=== PATIENT | female | born 1940 | race Caucasian/White ===

== ENCOUNTER → 2024-08-10 | Outpatient (CLI) | payer OTHER, SELFPAY ==
--- NOTE | 2024-08-10 13:30 | XR_ITS ---
Examination: CT abdomen without intravenous contrast. Coronal 2-D reconstructions. Sagittal 2-D reconstructions. Date and time of exam:August 10, 2024 at 1341 hours INDICATIONS: Ventral hernia 6 months CTDI: vol (mGy): 12.1 DLP: (mGycm): 411 Technique: Axial images of the abdomen have been obtained, 3 mm slice thickness, without intravenous contrast 2-D sagittal coronal reconstructions Low dose protocols were performed. One or more of the following dose reduction techniques were used; automated exposure control, adjustment of the mA and/or KV according to patient size, use of iterative reconstruction technique. Findings: No focal liver or splenic lesion Tiny gallstones Mild to moderate bilateral renal parenchymal scar formation Minute 5 mm fat-containing umbilical hernia Normal appendix No bowel obstruction IMPRESSION: 5 mm fat-containing umbilical hernia
== END | disposition home or self-care (01) ==
LOC: CCTX 13:14
PROVIDERS: PCP Internal Medicine; Referring Provider Internal Medicine; Visit Provider Internal Medicine
DX: K42.9 Umbilical hernia without obstruction or gangrene (principal)
CPT/HCPCS: 74150

== ENCOUNTER → 2024-08-17 | Outpatient (CLI) | payer OTHER, SELFPAY ==
[2024-08-17 10:38] LABS: Parathyroid Hormone Intact 59.4 pg/ml (18.5-88.0)
[2024-08-17 10:40] LABS: Albumin, Serum 4.8 gm/dL (3.4-4.8); Anion Gap 8 (7-16); BUN/Creatinine Ratio 13 Ratio (12-20); Blood Urea Nitrogen 20 mg/dL (9-23); Carbon Dioxide 27.5 mMol/L (20.0-31.0); Chloride 103 mMol/L (98-107); Creatinine (Component) 1.5 mg/dL (0.6-1.3); Glucose 103 mg/dL (74-106); Osmolality,Calculated 278 (275-295); Phosphorous 2.8 mg/dL (2.4-5.1); Potassium 3.6 mMol/L (3.4-5.1); Sodium 138 mMol/L (136-145); Uric Acid 4.5 mg/dL (3.1-7.8); eGFR 35 See Note
[2024-08-17 11:03] LABS: Vitamin D 25 Hydroxy Total 41.6 ng/mL (7.3-40.2)
[2024-08-17 12:04] LABS: Creatinine MALB Rnd Ur 105 mg/dL (30-125); Microalbumin, Random Urine < 3 mg/L (0-300)
== END | disposition home or self-care (01) ==
LOC: COPL 09:26
PROVIDERS: PCP Internal Medicine; Referring Provider Internal Medicine; Visit Provider Internal Medicine
DX: I12.9 Hypertensive chronic kidney disease with stage 1 through stage 4 chronic kidney disease, or unspecified chronic kidney disease (principal); N18.30 Chronic kidney disease, stage 3 unspecified
CPT/HCPCS: 36415; 80069; 82043; 82306; 82570; 83970; 84550

== ENCOUNTER → 2024-09-11 | Outpatient (CLI) | payer OTHER, SELFPAY ==
--- NOTE | 2024-09-11 10:15 | XR_ITS ---
Examination: MRI abdomen with intravenous contrast. MRI abdomen without intravenous contrast. Date and time of exam: September 03, 2024 1044 hrs. Indications: Diagnosis benign neoplasm kidney and ventral hernia 6 months, Technique: Multiple axial, sagittal and coronal sections of the abdomen obtained. Transverse images, TR 6020, TE 107. T1 weighted transverse images, TR 582, TE 9.5. T2-weighted sagittal images, TR 4000, TE 105. T2-weighted sagittal images, TR 4000, TE 5. Coronal images, TR 4210, TE 107. Axial and coronal images are obtained post 20 cc intravenous injection, gadolinium. Findings: No focal liver lesions Gallbladder wall is not thickened Normal sized common hepatic common bile duct 3 to 4 mm no stones No pancreatic mass or peripancreatic edema Spleen not enlarged Bilateral renal cysts, the largest in the lower pole right kidney 25 mm No ascites Postcontrast images demonstrate no abnormal enhancing liver splenic or renal lesions Impression: Negative for cholecystitis No extrahepatic biliary tract dilatation Negative for pancreatitis Bilateral benign renal cysts
== END | disposition home or self-care (01) ==
LOC: SMRI 09:40
PROVIDERS: PCP Internal Medicine; Referring Provider Internal Medicine; Visit Provider Internal Medicine
DX: N28.1 Cyst of kidney, acquired (principal)
CPT/HCPCS: 74183

== ENCOUNTER → 2024-11-02 | Outpatient (CLI) | payer OTHER, SELFPAY ==
[2024-11-02 13:13] LABS: Collection Type, Urine Clean Catch
[2024-11-02 13:52] LABS: Basophils # (Auto) 0.1 Thou/mm3 (0.0-0.2); Basophils % (Auto) 1 % (0-2.5); Eosinophils # (Auto) 0.2 Thou/mm3 (0.0-0.5); Eosinophils % (Auto) 2 % (0-10); Hematocrit 39.6 % (36.0-46.0); Hemoglobin 12.9 g/dL (12.0-16.0); Immature Granulocytes % (Auto) 0 % (0-0); Immature Granulocytes Auto 0.03 Thou/mm3 (0.00-0.00); Lymphocytes # (Auto) 2.3 Thou/mm3 (1.0-4.8); Lymphocytes % (Auto) 26 % (10-50); Mean Corpuscular HGB Conc 32.6 g/dl (31.0-37.0); Mean Corpuscular Hemoglobin 30.3 pg (25.0-35.0); Mean Corpuscular Volume 93 fL (80-100); Monocytes # (Auto) 0.4 Thou/mm3 (0.0-0.8); Monocytes % (Auto) 4 % (0-12); Neutrophils # (Auto) 5.7 Thou/mm3 (1.8-7.7); Neutrophils % (Auto) 66 % (37-80); Nucleated Red Blood Cell % 0 /100 WBC (0); Platelet Count 348 Thou/mm3 (140-440); RDW Standard Deviation 50.6 fL (36.4-46.3); Red Blood Count 4.26 Miln/mm3 (4.00-5.20); White Blood Count 8.7 Thou/mm3 (3.6-11.0)
[2024-11-02 13:58] LABS: Bilirubin,Urine Negative (Negative); Blood,Urine Negative (Negative); Clarity,Urine Clear (Clear/Hazy); Color,Urine Lt-Yellow (Lt Yel-Yel); Glucose, Urine Negative (Negative); Ketones,Urine Negative (Negative); Leukocyte Esterase,Urine Negative (Negative); Nitrite,Urine Negative (Negative); Protein,Urine Negative (Neg - Trace); RBC,Urine 2 /hpf (0-3); Specific Gravity,Urine 1.016 (1.001-1.035); Squamous Epithelial Cell,Urine 4 /hpf (0-5); Urobilinogen,Urine Negative mg/dL (0.0-1.0); WBC,Urine 1 /hpf (0-5)
[2024-11-02 14:16] LABS: Alanine Aminotransferase 16 U/L (10-49); Albumin, Serum 4.1 gm/dL (3.4-4.8); Albumin/Globulin Ratio 1.6 (1.2-2.2); Alkaline Phosphatase 77 U/L (46-116); Anion Gap 10 (7-16); Aspartate Amino Transferase 20 U/L (0-34); BUN/Creatinine Ratio 18 Ratio (12-20); Bilirubin,Total 0.5 mg/dL (0.3-1.2); Blood Urea Nitrogen 24 mg/dL (9-23); Calcium 9.9 mg/dL (8.3-10.6); Calcium (Corrected) 9.9 mg/dL (8.5-10.1); Cardiac Risk Estimate 3.8 RATIO (3.7-5.6); Chloride 103 mMol/L (98-107); Cholesterol 192 mg/dL (132-200); Creatinine (Component) 1.3 mg/dL (0.6-1.3); Globulin 2.5 gm/dL (2.3-3.5); Glucose 97 mg/dL (74-106); HDL Cholesterol 51 mg/dL (40-60); LDL Cholesterol,Calculated 112 mg/dL (0-130); Osmolality,Calculated 287 (275-295); Phosphorous 3.5 mg/dL (2.4-5.1); Potassium 4.1 mMol/L (3.4-5.1); Sodium 142 mMol/L (136-145); Total Protein 6.6 gm/dL (5.7-8.2); Triglycerides 147 mg/dL (30-150); eGFR 41 See Note
[2024-11-02 14:20] LABS: Iron 63 mcg/dL (50-170)
== END | disposition home or self-care (01) ==
PROVIDERS: PCP Internal Medicine; Referring Provider Internal Medicine; Visit Provider Internal Medicine
DX: I12.9 Hypertensive chronic kidney disease with stage 1 through stage 4 chronic kidney disease, or unspecified chronic kidney disease (principal); N18.30 Chronic kidney disease, stage 3 unspecified; D50.0 Iron deficiency anemia secondary to blood loss (chronic); E78.2 Mixed hyperlipidemia
CPT/HCPCS: 36415; 80053; 80061; 81001; 83540; 84100; 85025

== ENCOUNTER → 2025-02-23 | Outpatient (CLI) | payer OTHER, SELFPAY ==
--- NOTE | 2025-02-23 09:14 | XR_ITS ---
EXAMINATION: Cervical spine, 5 views Technique: Cervical spine AP, AP odontoid, lateral, bilateral obliques, 5 views Exam date and time: 2024 0935 hours INDICATIONS: Neck pain years. FINDINGS: Adequate alignment cervical vertebral bodies. No cervical fracture. Intact odontoid. Advanced degenerative disc disease C5-C6, C6-C7 with moderate bilateral neural foraminal stenosis IMPRESSION: Advanced degenerative disc disease C5-C6, C6-C7 with moderate bilateral neural foraminal stenosis Incidental note heavy soft tissue carotid vascular calcification, consider correlation with carotid Doppler sonography follow-up
--- NOTE | 2025-02-23 09:14 | XR_ITS ---
Examination: Thoracic spine 3 views Technique one AP lateral coned lateral upper dorsal spine 3 views Date and time: 10/26/2024 at 0940 hours INDICATIONS: Chronic back pain years FINDINGS: Prominent osteopenia. Moderate diffuse thoracic degenerative disc disease No acute thoracic fracture Prominent thoracic spondylosis IMPRESSION: Moderate diffuse thoracic degenerative disc disease
--- NOTE | 2025-02-23 09:14 | XR_ITS ---
Examination: Lumbar spine, 5 views Technique: Lumbar spine AP, lateral, coned lateral lower lumbar spine, bilateral obliques 5 views Exam date and time: February 23, 2025 0935 hours Comparison August 26, 2023 INDICATIONS: Low back pain years radiating to the hips FINDINGS: Lower lumbar levoscoliosis 13 degrees Prominent osteopenia Advanced diffuse facet arthropathy Grade 1 anterolisthesis L5 on S1 Advanced degenerative disc disease at the lower 3 lumbar levels IMPRESSION: Advanced degenerative disc disease at the lower 3 lumbar levels
[2025-02-23 10:30] LABS: Basophils # (Auto) 0.1 Thou/mm3 (0.0-0.2); Basophils % (Auto) 1 % (0-2.5); Eosinophils # (Auto) 0.3 Thou/mm3 (0.0-0.5); Eosinophils % (Auto) 3 % (0-10); Hematocrit 39.7 % (36.0-46.0); Hemoglobin 13.1 g/dL (12.0-16.0); Immature Granulocytes % (Auto) 0 % (0-0); Immature Granulocytes Auto 0.02 Thou/mm3 (0.00-0.00); Lymphocytes # (Auto) 2.6 Thou/mm3 (1.0-4.8); Lymphocytes % (Auto) 27 % (10-50); Mean Corpuscular Hemoglobin 30.4 pg (25.0-35.0); Mean Corpuscular Volume 92 fL (80-100); Monocytes # (Auto) 0.5 Thou/mm3 (0.0-0.8); Monocytes % (Auto) 5 % (0-12); Neutrophils # (Auto) 6.1 Thou/mm3 (1.8-7.7); Neutrophils % (Auto) 64 % (37-80); Nucleated Red Blood Cell % 0 /100 WBC (0); Platelet Count 317 Thou/mm3 (140-440); RDW Standard Deviation 47.8 fL (36.4-46.3); Red Blood Count 4.31 Miln/mm3 (4.00-5.20); White Blood Count 9.5 Thou/mm3 (3.6-11.0)
[2025-02-23 10:35] LABS: Glucose Estimated Average 108 mg/dL (80-131); Hemoglobin A1C 5.4 % Hgb (4.8-6.0)
[2025-02-23 10:44] LABS: Parathyroid Hormone Intact 63.7 pg/ml (18.5-88.0)
[2025-02-23 10:50] LABS: Alanine Aminotransferase 16 U/L (10-49); Albumin, Serum 4.5 gm/dL (3.4-4.8); Albumin/Globulin Ratio 1.7 (1.2-2.2); Alkaline Phosphatase 80 U/L (46-116); Anion Gap 12 (7-16); BUN/Creatinine Ratio 14 Ratio (12-20); Bilirubin,Total 0.7 mg/dL (0.3-1.2); Blood Urea Nitrogen 20 mg/dL (9-23); Cardiac Risk Estimate 3.2 RATIO (3.7-5.6); Chloride 103 mMol/L (98-107); Cholesterol 168 mg/dL (132-200); Creatinine (Component) 1.4 mg/dL (0.6-1.3); Globulin 2.6 gm/dL (2.3-3.5); Glucose 98 mg/dL (74-106); HDL Cholesterol 53 mg/dL (40-60); LDL Cholesterol,Calculated 87 mg/dL (0-130); Osmolality,Calculated 287 (275-295); Potassium 3.6 mMol/L (3.4-5.1); Sodium 143 mMol/L (136-145); Thyroid Stimulating Hormone 3.31 uIU/mL (0.55-4.78); Total Protein 7.1 gm/dL (5.7-8.2); Triglycerides 138 mg/dL (30-150); eGFR 38 See Note
[2025-02-23 11:42] LABS: Amphetamine/Methamp Scrn,U Negative (Negative); Barbiturate Screen,Urine Negative (Negative); Benzodiazepines Screen,Urine Positive (Negative); Benzoylecgonine Screen, Ur Negative (Negative); Creatinine MALB Rnd Ur 119 mg/dL (30-125); Fentanyl Screen,Urine Negative (Negative); Microalbumin Creat Ratio 3 mg/gCrea (<30); Microalbumin, Random Urine 3 mg/L (0-300); Opiate Screen,Urine Positive (Negative); THC Screen,Urine Positive (Negative)
== END | disposition home or self-care (01) ==
LOC: COPL 09:02
PROVIDERS: PCP Student in an Organized Health Care Education/Training Program; Referring Provider Internal Medicine; Visit Provider Radiology Diagnostic Radiology
DX: M50.323 Other cervical disc degeneration at C6-C7 level (principal); M48.02 Spinal stenosis, cervical region; M51.369 Other intervertebral disc degeneration, lumbar region without mention of lumbar back pain or lower extremity pain; M51.34 Other intervertebral disc degeneration, thoracic region; I12.9 Hypertensive chronic kidney disease with stage 1 through stage 4 chronic kidney disease, or unspecified chronic kidney disease; N18.30 Chronic kidney disease, stage 3 unspecified; F32.A Depression, unspecified; E78.5 Hyperlipidemia, unspecified; M48.00 Spinal stenosis, site unspecified
CPT/HCPCS: 36415; 72050; 72072; 72110; 80053; 80061; 80307; 82043; 82570; 83036; 83970; 84443; 85025

== ENCOUNTER → 2025-05-12 | Outpatient (CLI) | payer OTHER, SELFPAY ==
--- NOTE | 2025-05-12 | XR_ITS ---
Examination: Screening digital mammography, unilateral right Computer aided detection 3-D breast Tomosynthesis, unilateral Date and time of exam: 05/12/2025, 11:08 AM Comparisons: November 2020 through March 2024 Indications: Screening, personal history of left breast cancer with mastectomy Technique: Nonmagnified MLO, CC views of the right breast to been obtained, reconstructed from 3-D Tomosynthesis images. R2 computer aided detection program utilized for evaluation of suspicious masses and/or abnormal calcifications. 3-D Tomosynthesis images obtained. Findings: There are scattered areas of fibroglandular density. No evidence of abnormal masses or suspicious calcifications. Impression: BI-RADS category 1: Negative findings (within normal) Recommend 1 year follow-up mammogram
--- NOTE | 2025-05-12 11:00 | XR_ITS ---
Examination: Carotid arterial duplex scan, ultrasound. Date and time of exam: May 04, 2025, 1118 hrs. Indications: Soft tissue vascular calcification on plain cervical spine films to 2024. Technique: Multiple sonographic images have been obtained of the carotid arteries and vertebral arteries, B-mode/grayscale imaging and Doppler spectral analysis and color flow Peak systolic and diastolic velocities have been recorded. Systolic diastolic ratios have been calculated. Findings: Right peak systolic velocities: Distal internal carotid artery peak systolic velocity is 0.8 M/sec Proximal internal carotid artery peak systolic velocity is 0.9 M/sec Carotid bifurcation peak systolic velocity is 1.1 M/sec External carotid artery peak systolic velocity is 1.2 M/sec Vertebral artery flow is antegrade. Left peak systolic velocities: Distal internal carotid artery peak systolic velocity is 1.1 M/sec Proximal internal carotid artery peak systolic velocity is 1.2 M/sec Carotid bifurcation peak systolic velocity is 0.8 M/sec External carotid artery peak systolic velocity is 1.6 M/sec Vertebral artery flow is antegrade Doppler waveform analysis demonstrates no spectral broadening Impression: Right internal carotid artery demonstrates 10-30% stenosis. Left internal carotid artery demonstrates 20-40% stenosis.
--- NOTE | 2025-05-12 12:40 | XR_ITS ---
Examination: Bone densitometry Date and time of exam:May 12, 2025 1240 hrs. Indications: Postmenopausal Technique: Lumbar spine and hip total bone mineralization values of an calculated. Peak reference and age match control results have been displayed. Findings: Lumbar spine total bone mineralization is1.177 gm/cm2. This is 1.2 standard deviations above peak reference. This is 4.0 standard deviations above age-matched controls. Hip total bone mineralization is 0.842 gm/cm2 This is 0.8 standard deviations below peak reference. This is 1.4 standard deviations above age-matched controls Impression: There is normal mineralization based on lumbar spine measurements. There is osteopenia based on hip measurements Lumbar mineralization is increase 0.8% compared with 05/29/2021 Hip mineralization is decreased 6.9% compared with 05/29/2021
== END | disposition home or self-care (01) ==
LOC: CDIM 10:52
PROVIDERS: PCP Family Medicine; Referring Provider Student in an Organized Health Care Education/Training Program; Visit Provider Student in an Organized Health Care Education/Training Program
DX: Z12.31 Encounter for screening mammogram for malignant neoplasm of breast (principal); R92.311 Mammographic fatty tissue density, right breast; M85.89 Other specified disorders of bone density and structure, multiple sites; Z85.3 Personal history of malignant neoplasm of breast
CPT/HCPCS: 77063; 77067; 77080; 93880

== ENCOUNTER → 2025-07-27 | Outpatient (CLI) | payer OTHER, SELFPAY ==
[2025-07-27 13:05] LABS: Collection Type, Urine Clean Catch
[2025-07-27 13:30] LABS: Bilirubin,Urine Negative (Negative); Blood,Urine Negative (Negative); Clarity,Urine Clear (Clear/Hazy); Color,Urine Lt-Yellow (Lt Yel-Yel); Glucose, Urine Negative (Negative); Ketones,Urine Negative (Negative); Leukocyte Esterase,Urine Positive (Negative); Nitrite,Urine Negative (Negative); PH,Urine 6.0 (5.0-7.0); Protein,Urine Negative (Neg - Trace); RBC,Urine 3 /hpf (0-3); Specific Gravity,Urine 1.011 (1.001-1.035); Squamous Epithelial Cell,Urine 3 /hpf (0-5); Urobilinogen,Urine Negative mg/dL (0.0-1.0); WBC,Urine 4 /hpf (0-5)
[2025-07-27 13:33] LABS: Albumin, Serum 4.4 gm/dL (3.4-4.8); Anion Gap 9 (7-16); BUN/Creatinine Ratio 18 Ratio (12-20); Blood Urea Nitrogen 25 mg/dL (9-23); Calcium 9.8 mg/dL (8.3-10.6); Calcium (Corrected) 9.8 mg/dL (8.5-10.1); Carbon Dioxide 29.1 mMol/L (20.0-31.0); Chloride 102 mMol/L (98-107); Creatinine (Component) 1.4 mg/dL (0.6-1.3); Glucose 97 mg/dL (74-106); Osmolality,Calculated 283 (275-295); Phosphorous 3.4 mg/dL (2.4-5.1); Potassium 4.0 mMol/L (3.4-5.1); Sodium 140 mMol/L (136-145); eGFR 37 See Note
== END | disposition home or self-care (01) ==
LOC: COPL 12:36
PROVIDERS: PCP Family Medicine; Referring Provider Family Medicine; Visit Provider Internal Medicine
DX: N18.30 Chronic kidney disease, stage 3 unspecified (principal)
CPT/HCPCS: 36415; 80069; 81001

== ENCOUNTER → 2025-08-18 | Outpatient (CLI) | payer OTHER, SELFPAY ==
--- NOTE | 2025-08-18 10:00 | XR_ITS ---
Examination: MRI lumbar spine without contrast Date and time of exam: August 18, 2025, 1128 hours INDICATIONS: Low back pain 2 years radiating to the right buttock hip. Weakness in the legs difficulty standing or walking Technique: Multiple MRI axial and sagittal sections lumbar spine. Sagittal T2-weighted images, TR 3500, TE 118 T1 weighted transverse sections, TR 688 T8.5, T2-weighted sagittal sections T1 weighted sagittal sections TR 621, TE 30 T2 axial sections, TR 4, 190, TE 84. Findings: Grade 1 spondylolisthesis L5 on S1 Advanced disc narrowing L3-L4 Diffuse lumbar disc desiccation Normal position of the conus medullaris L5-S1 4 mm central lumbar disc bulge with mild left L5 ganglionic compression secondary to the anterolisthesis L4-L5 6 mm central left paracentral subarticular disc bulge L3-L4 no disc protrusion L2-L3 no disc protrusion L1-L2 no disc protrusion IMPRESSION: L5-S1 grade 1 spondylolisthesis, 4 mm central lumbar disc bulge produces mild left L5 ganglionic compression L4-L5 6 mm central left paracentral subarticular disc bulge
== END | disposition home or self-care (01) ==
PROVIDERS: PCP Family Medicine; Referring Provider Family Medicine; Visit Provider Family Medicine
DX: M43.17 Spondylolisthesis, lumbosacral region (principal); M51.360 Other intervertebral disc degeneration, lumbar region with discogenic back pain only; G95.20 Unspecified cord compression
CPT/HCPCS: 72148